=== PATIENT | male | born 1995 | race Caucasian/White ===

== ENCOUNTER 2019-07-09 06:59 | Emergency (ER) | payer SELFPAY ==
[2019-07-09 07:02] VITALS: BP 160/93; PULSE 81; RESP 16; TEMP 36.6; O2SAT 100
--- NOTE | 2019-07-09 07:17 | W.ED.GENAD ---
Discharge Plan Disposition Patient Disposition: HOME Condition: Good Discharge Details Chief Complaint: DentalOral Clinical Impression: Pain, dental, TMJ arthralgia ED Provider: Niles Crawford Home Meds and New Rx's Prescriptions: New penicillin V potassium 500 mg tablet 500 mg PO QID 10 Days Qty: 40 RF: 0 Discharge Instructions Instructions: Temporomandibular Disorder (ED), Toothache (ED) Additional Instructions: The pain in your teeth is likely secondary to an infection and irritation. Please take 800 mg of ibuprofen every 6 hours and 1000 mg of Tylenol every 6 hours. Please take the antibiotic as directed. Please follow-up closely with the dentist. If you notice any worsening of your symptoms, or any new symptoms such as vomiting, diarrhea, fever, chills, shortness of breath, chest pain, numbness, weakness, or fainting , please return immediately to the emergency department for reevaluation. Please follow up with your primary care provider as soon as possible for reassessment and reevaluation. As always, it was a pleasure participating in your medical care today. Medical Decision Making This is a 23-year-old male with no significant past medical history who presents for right-sided upper and lower dental pain. Physical exam demonstrates notable dental caries, primarily in the posterior superior aspect of the upper back right molar, no evidence of temporomandibular joint dislocation, no evidence of crepitus at the TMJ. Dental block was performed for both the upper and lower alveolar spaces, patient tolerated this well and had complete resolution of his pain. We will give penicillin for treatment of the dental caries, recommend continued NSAIDs and close follow-up with dentist. We did give a dental sheet. I have extensively reviewed the treatment plan and discharge instructions with the patient. I have addressed all patient concerns at this time. The patient was made aware of what symptoms to monitor for that would warrant a return to the emergency department. Discussed the plan with the patient, they demonstrate verbal understanding and agreement with our assessment and plan at this time. Time out was taken to identify the correct patient, procedure, and site. Risks and benefits were discussed with the patient and consent was obtained. Direct pressure was held over the area prior to the procedure to reduce painful injection. 5 cc?s of Lidocaine 1% and Bupivacaine 0.25% was instilled into the upper alveolar space and an additional 5 cc placed in the inferior alveolar space with a 27 gauge needle.Complete analgesia was obtained. The patient tolerated the procedure. There were no complications. [facility] General Date/Time Provider Initiated Documentation: 07/09/19 07:00. HPI Narrative: 23-year-old male with no significant past medical history except for previous dental caries who presents today for evaluation of right sided dental pain. He has pain in the upper and lower jaw as well as over the TMJ. It is been present for the last 2 weeks but is notably worse in the last 24 to 48 hours. He has taken occasional Tylenol Motrin which at first was improving his pain, but currently is not. He denies any fevers. Pain is made worse with chewing. He has not seen a dentist. He denies any nausea, vomiting, diarrhea, difficulty swallowing, headache, posterior neck pain. No other complaints at this time. Related Data Home Medications Medication Instructions Recorded Confirmed penicillin V potassium 500 mg PO QID 10 Days #40 tab 07/09/19 Previous Rx's Medication Instructions Recorded penicillin V potassium 500 mg PO QID 10 Days #40 tab 07/09/19 Allergies Allergy/AdvReac Type Severity Reaction Status Date / Time No Known Allergies Allergy Unverified 07/09/19 07:13 General Stated Complaint: DentalOral PATT: 4 Review of Systems All systems reviewed & are unremarkable except as noted in HPI and below PFSH Social History Smoking/Tobacco Use Status: Current every day Alcohol Intake: never Drug use: Never Substance use type: does not use Exam Narrative Exam Narrative: 1.Const: Well-nourished, Well-developed, appearing stated age 2.Eyes: PERRL, no conjunctival injection, and symmetrical lids. 3.ENT: Atraumatic external nose and ears. Moist MM. Neck: Symmetric, trachea midline, No thyromegaly. Notable dental caries over the patient's right posterior upper molar, and small dental caries over the right lower molars. Minimal tenderness over the right temporomandibular joint, however no asymmetry, crepitus, or other abnormalities. No evidence of peritonsillar abscess or erythema in the posterior oropharynx. No nuchal rigidity. No evidence of Ludewig's angina. 4.CVS: +S1/S2, No murmurs or gallops. Peripheral pulses 2+ and equal in all extremities. Brisk capillary refill in all extremities. 5.RESP: Unlabored respiratory effort. Clear to auscultation bilaterally. No wheezes rales or rhonchi 6.GI: Soft, Nontender/Nondistended, No hepatosplenomegaly. No guarding or rebound. 7.MSK: Normocephalic/Atraumatic, Extremities w/o deformity or ttp No cyanosis or clubbing, Normal movement of all extremities 8.Skin: Warm, Dry. No rashes or lesions. 9.Neuro: well services operator II-XII grossly intact. Sensation grossly intact, no focal neurologic deficits. 10.Psych: (AAO) x3. Appropriate mood and affect Course Vital Signs Vital signs: Vital Signs Temperature 36.6 C 07/09/19 07:02 Pulse 81 07/09/19 07:02 Respiratory Rate 16 07/09/19 07:02 Blood Pressure 160/93 H 07/09/19 07:02 Pulse Oximetry 100 07/09/19 07:02 Temperature 36.6 C 07/09/19 07:02 Temperature Source Temporal Artery Scan 07/09/19 07:02 Pulse 81 07/09/19 07:02 Respiratory Rate 16 07/09/19 07:02 Respiratory Effort Non-Labored 07/09/19 07:14 Blood Pressure 160/93 H 07/09/19 07:02 Blood Pressure Position Sitting 07/09/19 07:02 Pulse Oximetry 100 07/09/19 07:02 Oxygen Delivery Method Room Air 07/09/19 07:02 Oxygen Flow Rate 0 07/09/19 07:02 Pain Level 10 07/09/19 07:02
[2019-07-09] MEDS: Penicillin V POTASSIUM 500 MG TAB PO (07:22)
[2019-07-09] MEDS: Bupivacaine 0.5% Pres-Free 30 ML VIAL (07:49)
== END 2019-07-09 07:28 | disposition home or self-care (01) ==
LOC: ER 07:32
PROVIDERS: Emergency Provider Student in an Organized Health Care Education/Training Program
DX: R68.84 Jaw pain (principal); K08.89 Other specified disorders of teeth and supporting structures; M26.621 Arthralgia of right temporomandibular joint
CPT/HCPCS: 64450

== ENCOUNTER 2019-12-28 08:41 | Outpatient (CLI) | payer SELFPAY ==
[2020-01-04 10:20] LABS: SARS-CoV-2 RNA Undetected (Undetected)
== END 2019-12-28 09:01 ==
PROVIDERS: Visit Provider Family Medicine
DX: Z20.828 Contact with and (suspected) exposure to other viral communicable diseases (principal)
CPT/HCPCS: U0003

== ENCOUNTER 2022-06-08 15:52 | Emergency (ER) | payer OTHER, SELFPAY ==
[2022-06-08 16:00] VITALS: BP 153/82; PULSE 82; RESP 16; TEMP 36.9; O2SAT 99
--- NOTE | 2022-06-08 16:41 | ED.GENADUL_ITS ---
Discharge Plan Disposition Patient Disposition: Home Condition: Stable Discharge Details Chief Complaint: Laceration Clinical Impression: Finger laceration Primary Care Provider: None,None ED Provider: Daniel Hayward Home Meds and New Rx's Prescriptions: No Action No Known Home Meds Discharge Instructions Instructions: Finger Laceration (ED) Additional Instructions: Keep the area clean and dry, change dressing in the next 48-72 hours. At that time change dressing daily. [id number] Tylenol and/or Motrin as directed for discomfort. Please watch for new or worsening symptoms and return to the ER for any concerns. Medical Decision Making 26-year-old gentleman, [id number], presents for a left middle finger laceration he sustained at work prior to arrival on a planer. The planer was set to 1/16. There is no approximation required. Laceration was thoroughly soaked, cleaned and irrigated. No bleeding. A bacitracin compression tube gauze dressing was then applied. Tetanus status updated. Standard discharge and return precautions were provided. Patient understands, is agreeable to this plan, and has no additional questions or concerns upon discharge. This documentation was generated using [employer] system, please disregard any oddities of phrase or misspellings. Medical Records Medical records reviewed: Yes I reviewed the patient's medical records. HPI General Mode of arrival: ambulatory . Date/Time Provider Initiated Documentation: 06/08/22 16:02 . Limitations to Documentation: no limitations . Information obtained by: patient . History of Present Illness 26 year old M presents to the emergency department with the chief complaint of L middle finger lac, described as mild, with intensity rated at 3. Quality is described as aching, and is localized to the left and upper extremity. Patient reports no radiation. Patient started experiencing this hour(s) (2) and it has been constant. No relieving factors improve symptom(s), No exacerbating factors reported . Patient notes no other symptoms.. Patient did receive the following treatments prior to arrival, none Related Data Home Medications Medication Instructions Recorded Confirmed Unknown [No Known Home Meds] 06/08/22 06/08/22 Allergies Allergy/AdvReac Type Severity Reaction Status Date / Time No Known Allergies Allergy Unverified 06/08/22 16:02 General Stated Complaint: Laceration PATT: 4 Review of Systems Constitutional Constitutional: Denies fever(s) and Denies weakness Musculoskeletal Musculoskeletal: Denies arthralgias, Denies numbness, Denies stiffness and Denies tingling Integumentary/Breasts Skin/Breast: Denies erythema Neurologic Neurologic: Denies numbness, Denies tingling and Denies weakness PFSH All Active Problems (Updated 06/08/22 @ 17:03 by ALEX Guallpa) Finger laceration (Acute) Social History Smoking/Tobacco Use Status: Current every day Tobacco Type: e-cigarettes Smoking risk assessment performed?: Yes Alcohol Intake: never Drug use: Never Substance use type: does not use Do you feel safe at home: Yes Do you feel safe in your relationship?: Yes Exam Const General: cooperative, healthy appearing, comfortable and no acute distress Orientation: alert and awake HENMI Head: normal to inspection, normocephalic and atraumatic Eyes Conjunctivae: conjunctivae normal Neck Neck: normal visual inspection, trachea midline and supple Resp Effort & Inspection: normal respiratory effort and able to speak in complete sentences Cardio Rate: regular rate Rhythm: regular rhythm Skin General skin exam: no rashes or lesions noted Neuro General: patient alert, patient awake, moves all extremities and no focal motor deficits Cognition: normal cognition Speech: speech normal Gait: normal gait Sensory Exam: no sensory deficits noted Extrem General: full ROM and capillary refill normal Hand/finger images: 1. There is a 1 cm superficial flap laceration that is well approximated no active bleeding. Neuro, vascular, tendon intact. 5 out of 5 strength. Normal capillary refill. Psych Appearance: grossly normal Mental Status: mental status grossly normal Course Vital Signs Vital signs: Vital Signs Temperature 36.9 C 06/08/22 16:00 Pulse 82 06/08/22 16:00 Respiratory Rate 16 06/08/22 16:00 Blood Pressure 153/82 H 06/08/22 16:00 Pulse Oximetry 99 06/08/22 16:00 Temperature 36.9 C 06/08/22 16:00 Temperature Source Skin 06/08/22 16:00 Pulse 82 06/08/22 16:00 Respiratory Rate 16 06/08/22 16:00 Respiratory Effort 06/08/22 16:03 Blood Pressure 153/82 H 06/08/22 16:00 Blood Pressure Position Sitting 06/08/22 16:00 Pulse Oximetry 99 06/08/22 16:00 Oxygen Delivery Method Room Air 06/08/22 16:00 Oxygen Flow Rate 0 06/08/22 16:00 Pain Level 4 06/08/22 16:00
--- NOTE | 2022-06-08 17:30 | NUR.NOTE ---
Patient signed a consent for the TDap vaccination and before the nurse realized, the patient left with the signed consent. CLB
== END 2022-06-08 17:23 | disposition home or self-care (01) ==
PROVIDERS: Emergency Provider Physician Assistant
DX: S61.213A Laceration without foreign body of left middle finger without damage to nail, initial encounter (principal); Z23 Encounter for immunization; Y99.0 Civilian activity done for income or pay; W31.2XXA Contact with powered woodworking and forming machines, initial encounter
CPT/HCPCS: 90471; 99282

== ENCOUNTER 2023-10-24 09:50 | Emergency (ER) | payer OTHER, SELFPAY ==
[2023-10-24 09:52] VITALS: BP 147/86; PULSE 69; RESP 16; TEMP 36.4; O2SAT 97
--- NOTE | 2023-10-24 10:38 | ED.GENADUL_ITS ---
Discharge Plan Disposition Patient Disposition: Home Condition: Stable Discharge Details Clinical Impression: Dental infection Primary Care Provider: None,None ED Provider: Ashok Bose Home Meds and New Rx's Prescriptions: New penicillin V potassium 500 mg tablet 500 mg PO QID 10 Days Qty: 40 0RF Discharge Instructions Instructions: Dental Abscess (ED) Additional Instructions: Please use full course of antibiotic as prescribed. Please take ibuprofen over the counter. Take 600mg by mouth every 6 hours as needed for pain. Please contact your dentist to arrange follow-up. Call today. Your blood pressure was elevated today to 147/86. This is too high. I suspect this is related to pain. Please be sure to follow-up with your primary care quinton grullon to have this rechecked. If you need a primary care physician, nurse practitioner Evelina Arriaga is excepting patients today. Return to the ER immediately for any worsening or new concerning symptoms. Referrals: Evelina Arriaga [NURSE PRACTITIONER] - [facility] General Mode of arrival: ambulatory . Date/Time Provider Initiated Documentation: 10/24/23 10:26 . Limitations to Documentation: no limitations . Information obtained by: patient . HPI Narrative: 19-year-old male here with chief complaint of left upper premolar dental pain. Pain started last night and has persisted. Pain is severe. Patient notes chronic dental fracture since 2018. Related Data Home Medications Medication Instructions Recorded Confirmed penicillin V potassium 500 mg 500 mg PO QID 10 days #40 tabs 10/24/23 tablet Previous Rx's Medication Instructions Recorded penicillin V potassium 500 mg 500 mg PO QID 10 days #40 tabs 10/24/23 tablet Allergies Allergy/AdvReac Type Severity Reaction Status Date / Time No Known Allergies Allergy Unverified 10/24/23 09:58 General Stated Complaint: DentalOral PATT: 4 Review of Systems ENT Ears, Nose, Mouth, and Throat: Reports as per HPI Exam HENMT Face and sinus: normal facial exam and no fluctuance Teeth and gingiva: caries and other (Tooth #13 with chronic fracture, no fluctuance along gumline) Throat: posterior oropharynx normal Neck Neck: normal visual inspection, no lymphadenopathy and no anterior neck swelling Course Vital Signs Vital signs: Vital Signs Temperature 36.4 C L 10/24/23 09:52 Pulse 69 10/24/23 09:52 Respiratory Rate 16 10/24/23 09:52 Blood Pressure 147/86 H 10/24/23 09:52 Pulse Oximetry 97 10/24/23 09:52 Temperature 36.4 C L 10/24/23 09:52 Temperature Source Tympanic 10/24/23 09:52 Pulse 69 10/24/23 09:52 Respiratory Rate 16 10/24/23 09:52 Blood Pressure 147/86 H 10/24/23 09:52 Blood Pressure Position Sitting 10/24/23 09:52 Pulse Oximetry 97 10/24/23 09:52 Oxygen Delivery Method Room Air 10/24/23 09:52 Oxygen Flow Rate 0 10/24/23 09:52 Pain Level 8 10/24/23 09:52 Medical Decision Making 27-year-old male here with acute dental pain tooth #13 which has chronic fracture. Patient has mild facial swelling. No palpable abscess. Suspect periapical dental infection. Periapical dental block performed after verbal consent. Plan to treat with penicillin and ibuprofen and have him follow-up with dentist. Usual customary discharge instructions were reviewed. Quality:SDOH Health Related Social Needs: No Data to Display PFSH All Active Problems Dental infection (Acute) Social History Smoking/Tobacco Use Status: Current every day Tobacco Type: e-cigarettes Smoking risk assessment performed?: Yes Alcohol Intake: never Drug use: Never Substance use type: does not use Do you feel safe at home: Yes Do you feel safe in your relationship?: Yes
[2023-10-24] MEDS: Ibuprofen 600 MG TAB PO (10:48)
[2023-10-24] MEDS: Penicillin V POTASSIUM 500 MG TAB PO (10:49)
[2023-10-24] MEDS: Benzocaine 20% Gel 30 GM JAR MM (10:49)
[2023-10-24 11:16] VITALS: BP 147/86; BP 150/96; PULSE 68; PULSE 69; RESP 16; RESP 18; TEMP 36.4; O2SAT 100; O2SAT 97
== END 2023-10-24 11:16 | disposition home or self-care (01) ==
PROVIDERS: Emergency Provider Student in an Organized Health Care Education/Training Program
DX: R68.84 Jaw pain (principal); K04.7 Periapical abscess without sinus; R03.0 Elevated blood-pressure reading, without diagnosis of hypertension
CPT/HCPCS: 64400